=== PATIENT | female | born 1980 | race Caucasian/White ===

== ENCOUNTER 2017-06-03 14:08 | Emergency (ER) | payer OTHER, MEDICAID ==
[~2017-06-03] VITALS: Ht 172.7 cm; Wt 41.8 kg
[~2017-06-03 14:08] MED LIST: CHERATUSSIN DA480 ML PO; ESTRACE; PREMARIN; VICODIN 5-5001 EACH PO; ZOFRAN4 MG PO; ZPAK PO
[2017-06-03] MEDS ORDERED: GABAPENTIN100 MG PO (14:19)
[2017-06-03] MEDS ORDERED: MELOXICAM7.5 MG PO (14:19)
[2017-06-03 14:32] LABS: ABSOLUTE BASOPHILS 0.1 thou/uL (0.0-0.2); ABSOLUTE MONOCYTES 0.8 thou/uL (0.0-1.2); BASOPHILS 0.4 %; HEMATOCRIT 39.7 % (37.0-47.0); HEMOGLOBIN 13.7 gm/dL (12.0-15.0); LYMPHOCYTES 11.6 %; MCH 31.8 pg (26.0-34.0); MCHC 34.4 g/dL (28.0-37.0); MCV 92.4 fL (80.0-100.0); MONOCYTES 4.7 %; MPV 7.8 fl. (7.2-11.1); NUCLEATED RBCS 0 /100WBC; PLATELET COUNT* 277 thou/uL (150-400); POLYS 83.3 %; RDW-CV 11.9 % (10.5-14.5); WBC 16.8 thou/uL (4.0-11.0)
[2017-06-03 14:37] LABS: ANION GAP 14 mmol/L (7-16); APTT 24.7 Seconds (25.0-31.3); BUN 21 mg/dL (7-18); CALCIUM 8.8 mg/dL (8.5-10.1); CHLORIDE 103 mmol/L (98-107); CO2 23 mmol/L (21-32); CREATININE 0.8 mg/dL (0.6-1.3); GLUCOSE 159 mg/dL (70-99); POTASSIUM 4.1 mmol/L (3.5-5.1); PROTIME 9.9 Seconds (9.20-11.50); SODIUM 140 mmol/L (136-145)
[2017-06-03 14:55] LABS: ALBUMIN 4.3 g/dL (3.4-5.0); ALKALINE PHOSPHATASE 118 U/L (46-116); CK-MB MASS 1.5 ng/mL (<0.5-3.6); LIPASE 122 U/L (73-393); NT-PRO BRAIN NAT PEPTIDE 34 pg/mL (<300); SGOT 46 U/L (15-37); SGPT 42 U/L (30-65); TOTAL BILIRUBIN 0.4 mg/dL (<0.1-1.0); TOTAL PROTEIN 7.7 g/dL (6.4-8.2); TROPONIN-I LEVEL <0.06 ng/mL (<0.06)
[2017-06-03 14:58] LABS: URINE BILIRUBIN NEGATIVE (Negative); URINE BLOOD NEGATIVE (Negative); URINE CLARITY CLEAR; URINE COLOR YELLOW; URINE GLUCOSE-RANDOM NEGATIVE (Negative); URINE KETONES 1+ (Negative); URINE LEUKOCYTES-REFLEX NEGATIVE (Negative); URINE NITRITE-REFLEX NEGATIVE (Negative); URINE PROTEIN NEGATIVE (Negative); URINE SPECIFIC GRAVITY >= 1.030 (1.005-1.030); URINE UROBILINOGEN 0.2 E.U./dl (0.2-1.0)
[2017-06-03 15:05] LABS: AMP/METHAMP Negative (Negative); BARBITURATES Negative (Negative); BENZODIAZEPINES Negative (Negative); COCAINE Negative (Negative); METHADONE Negative (Negative); OPIATES Negative (Negative); PCP Negative (Negative); THC Negative (Negative)
[2017-06-03 15:14] VITALS: BP 121/76
--- NOTE | 2017-06-04 17:00 | EKG ---
[place] [address] ELECTROCARDIOGRAM REPORT Name: SHANTI ACSOTA Room: [facility]#: [id number] Admission: 06/03/17 Attend Phys: Discharge: 06/03/17 Date of : 76 Report #: [id number] THIS REPORT FOR: //name// [facility] ED Test Date: 2017-06-03 Test Time: 14:13:41 Pat Name: SHANTI ACOSTA Department: Room: Gender: F Wanigan Clerk: : 1980 Requested By: Gerry Diaz Order Number: [id number] MD: Vignesh Zhao Measurements Intervals [place] Rate: 136 P: 77 MT: 128 QRS: 92 QRSD: 87 T: 55 QT: 293 QTc: 441 Interpretive Statements Sinus tachycardia Borderline right axis deviation Baseline wander in lead(s) V5,V6 No previous ECG available for comparison Electronically Signed On 06-04-2017 17:00:40 REMOTE BROADCAST TECHNICIAN by Vignesh Zhao [email or web address] <ELECTRONICALLY SIGNED> By: Vignesh Zhao MD, [facility] 06/04/17 1700 D: 02/1412 141 Vignesh Zhao MD, FACC /EPI
== END 2017-06-03 15:15 | disposition home or self-care (01) ==
LOC: M.ERS 14:08
PROVIDERS: Family Medicine; Physician Assistant
DX: R00.2 Palpitations (principal); R07.89 Other chest pain; Z90.710 Acquired absence of both cervix and uterus